=== PATIENT | male | born 1995 | race Hispanic/Latino ===

== ENCOUNTER 2020-09-24 10:45 | Emergency (ER) | payer SELFPAY ==
[2020-09-25 13:44] LABS: SARS-CoV-2 MS2 Positive; SARS-CoV-2 N Gene Positive; SARS-CoV-2 S Gene Positive; SARS-CoV-2 by NAA DETECTED (NotDetected); SARS-CoV-2 orf1ab Positive
== END 2020-09-24 11:53 | disposition home or self-care (01) ==
LOC: NAV ERS 10:45
DX: U07.1 COVID-19 (principal); Z87.891 Personal history of nicotine dependence
CPT/HCPCS: 87081; 87430; 87635; 87804; 99283; U0003